=== PATIENT | male | born 1955 | race Caucasian/White ===

== ENCOUNTER 2017-06-01 19:44 | Emergency (ER) | payer SELFPAY ==
[~2017-06-01] VITALS: Ht 188 cm; Wt 107.0 kg
[2017-06-01 19:51] VITALS: BP 166/97; PULSE 83; RESP 18; TEMP 98.7; O2SAT 99
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
[2017-06-01 20:05] VITALS: BP 151/93; PULSE 81; RESP 18; O2SAT 95
[2017-06-01] MEDS ORDERED: GELATIN 12 MM/7 MM FOAM TOPICAL ONE (20:15)
[2017-06-01 21:03] VITALS: BP 114/83
== END 2017-06-01 21:05 | disposition home or self-care (01) ==
LOC: PHED 19:44
DX: I83.892 Varicose veins of left lower extremity with other complications (principal); F17.200 Nicotine dependence, unspecified, uncomplicated
CPT/HCPCS: 12001